=== PATIENT | male | born 1960 | race Caucasian/White ===

== ENCOUNTER 2016-04-02 05:55 | Outpatient (CLI) | payer OTHER ==
[~2016-04-02] VITALS: Ht 167.6 cm; Wt 81.8 kg
--- NOTE | ~2016-04-02 | HEMODYNAMI ---
PATIENT:MYKE POE MEDICAL RECORD: [id number] : 60 LOCATION:D.CAT ADMISSION DATE: 04/02/16 Generatedon:04/02/20168:45 Patient name: MYKE POE Patient #: [id number] SSN: : 1960 Date of study: 04/02/2016 Page: Of Hemodynamic Procedure Report Patient Data Patient Demographics Procedure consent was obtained First Name: MYKE Gender: Male Last Name: DEEPIKA : 1960 Middle Initial: MIKE Age: 55 year(s) Patient #: [id number] Race: Unknown Additional ID: [id number] Contact details Address: [address] [place] [address] State: [place] City: [place] Zip code: [address] Past Medical History Performed procedures and imaging results Date Procedure Procedure Results Comments 02/19/2016 Stress testing Positive->Intermediate inferior with SPECT MPI risk and apically Allergies Allergen Reaction Date Comments Reported Zocor 04/02/2016 Admission Admission Data Admission Date: 04/02/2016 Admission Time: 5:55 Admit Source: Other Height (in.): 66 BSA: 1.92 (m2) Height (cm.): 167.64 BMI: 29.18 (kg/m2) Weight (lbs.): 180.78 Weight (kg.): 82 Lab Results Lab Result Date: 04/02/2016 Lab Result Time: 0:00 Biochemistry Name Units Result Min Max BUN mg/dl 13 --(--*-)-- 7 18 Creatinine mg/dl 1 --(--*-)-- 0.6 1.3 CBC Name Units Result Min Max Hemoglobin g/dl 14.3 --(*---)-- 13.5 17.5 Procedure Procedure Types Cath Procedure Diagnostic Procedure [facility] w/Coronaries Procedure Description Procedure Date Procedure Date: 04/02/2016 Procedure Start Time: 8:22 Procedure End Time: 8:45 Procedure Staff Name Function Chris Burton MD Performing Physician Carlyle Pruitt RN Nurse Duncan Huerta RT Monitor Fransisco Rosenbaum RT Scrub Phong Dawn RN Clearing Tub Worker Procedure Data Cath Procedure Fluoroscopy Diagnostic fluoroscopy Total fluoroscopy Time: 5 time: 5 min min Diagnostic fluoroscopy Total fluoroscopy dose: 555 dose: 555 mGy mGy Contrast Material Contrast Material Type Amount (ml) Isovue 300 71 Entry Location Entry Primary Successful Side Size Upsize Upsize Entry Closure Sy ccessful Closure Location (Fr) 1 (Fr) 2 (Fr) Remarks Device Remarks Radial Right 6 Fr Mechanical artery Short Compression Estimated blood loss: 10 ml Diagnostic catheters Device Type Used For End Catheter Placement Terumo 5Fr Beka 110cm Coronary catheter Angiography Terumo 5Fr [place] 110cm Coronary catheter Angiography Cordis Infinity 5Fr AR Coronary MOD Catheter Angiography Procedure Complications No complications Procedure Medications Medication Administration Route Dosage Oxygen NC 2 l/min Benadryl I.V. 50 mg Lidocaine 2% added to field 20 Heparin Flush Bag added to field 2 bags (1000units/500ml NS) 0.9% NaCl I.V. 100 ml/hr Versed I.V. 1 mg Fentanyl I.V. 50 mcg Versed I.V. 1 mg Fentanyl I.V. 50 mcg Versed I.V. 1 mg Fentanyl I.V. 50 mcg Radial Cocktail I.A. 1 syringe (Verapomil 2mg/Nitro 400mcg/Heparin 1500units) Versed I.V. 1 mg Fentanyl I.V. 50 mcg Versed I.V. 1 mg Hemodynamics Rest BSA: 1.92 (m2) HGB: 14.3 (g/dl) O2 Consumption: Estimated: 235.65 (ml/min) O2 Co nsumption indexed: Estimated:122.73 (ml/min/m) Heart Rate: 81 (bpm) Pressure Samples Time Site Value (mmHg) Purpose Heart Use Rate(bpm) 8:25 LV 142/-5,15 Snapshot 73 8:25 AO 107/69(89) Pullback 74 8:25 LV 139/3,15 Pullback 74 8:25 AO 109/57(86) Snapshot 76 8:33 AO 115/75(89) Snapshot 78 Gradients Valve Time Site 1 Site 2 Mean SEP/DFP Peak To Heart Use (mmHg) (sec/min) Peak Rate (mmHg) (bpm) Aortic 8:25 LV AO 21 8 32 74 139/3,15 107/69(89) Calculations Valve P-P Mean Valve Index Valve Source Name Gradient Area Flow (cm2) Aortic 32 21 32 21 Snapshots Pre Cath Intra NCS Post Cath Vital Signs Time Heart Resp SPO2 etCO2 [id number] NIBP (mmHg) Rhythm Pain Sedation Rate (ipm) (%) (mmHg) (mmHg) Status Level (bpm) 8:08:55 76 19 100 0 0 143/78(109) NSR 0 (11) 10(A) , No pain 8:13:09 63 17 95 0 0 149/82(116) NSR 0 (11) 10(A) , No pain 8:16:56 83 16 95 0 0 110/93(107) NSR 0 (11) 10(A) , No pain 8:21:02 65 19 95 0 0 126/73(97) NSR 0 (11) 10(A) , No pain 8:25:14 72 16 95 0 0 118/61(86) NSR 0 (11) 9(A) , No pain 8:29:26 82 17 94 0 0 123/62(85) NSR 0 (11) 9(A) , No pain 8:33:40 79 19 96 0 0 116/57(82) NSR 0 (11) 9(A) , No pain 8:37:50 76 16 95 0 0 115/61(78) NSR 0 (11) 9(A) , No pain 8:42:00 75 16 98 0 0 125/64(93) NSR 0 (11) 10(A) , No pain Medications Time Medication Route Dose Verified Delivered Reason Notes E ffectiveness by by 8:09:24 Oxygen NC 2 l/min Chris Buffie used for Micheal Pruitt RN procedure 8:09:33 Benadryl I.V. 50 mg Chris Buffie used for Micheal Pruitt RN procedure 8:10:29 Lidocaine 2% added 20ml Chris Chris for local to vial Micheal Burton MD anesthetic field 8:10:37 Heparin Flush added 2 bags Chris Chris used for Bag to Micheal Burton MD procedure (1000units/500ml field NS) 8:10:46 0.9% NaCl I.V. 100 Chris Buffie Per ml/hr Micheal Pruitt RN physician 8:14:14 Versed I.V. 1 mg Chris Buffie for sedation Micheal Pruitt RN 8:14:20 Fentanyl I.V. 50 mcg Chris Buffie for sedation Micheal Pruitt RN 8:18:30 Versed I.V. 1 mg Chris Buffie for sedation Micheal Pruitt RN 8:18:33 Fentanyl I.V. 50 mcg Chris Buffie for sedation Micheal Pruitt RN 8:23:31 Versed I.V. 1 mg Chris Buffie for sedation Micheal Pruitt RN 8:23:34 Fentanyl I.V. 50 mcg Chris Buffie for sedation Micheal Pruitt RN 8:23:43 Radial Cocktail I.A. 1 Chris Chris for (Verapomil syringe Micheal Burton MD vasodilation 2mg/Nitro 400mcg/Heparin 1500units) 8:28:38 Versed I.V. 1 mg Chris Chris for sedation Micheal Burton MD 8:28:42 Fentanyl I.V. 50 mcg Chris Chris for sedation Micheal Burton MD 8:33:47 Versed I.V. 1 mg Chris Chris for sedation Micheal Burton MD Procedure Log Time Note 7:30:03 Phong Dawn RN sent for patient. Start room use. 7:37:55 Admit Source: Other 7:43:43 Diagnostic Cath status Elective 7:44:03 Time tracking: Regular hours 7:44:09 Plan of Care:Hemodynamics will remain stable., Cardiac rhythm will remain stable., Comfort level will be maintained., Respiratory function will remain adequate., Patient/ family verbilizes understanding of procedure., Procedure tolerated without complication., Recovers from procedure without complications.. 7:51:43 Patient Weight : 180.78 lbs 7:52:12 Patient Height : 66 inches 7:53:15 Patient allergic to Zocor 7:54:29 Lab Result : BUN 13 mg/dl 7:54:29 Lab Result : Creatinine 1 mg/dl 7:54:29 Lab Result : Hemoglobin 14.3 g/dl 7:55:20 ACC Patient presents with Stable Angina CCS Anginal Class 2--Slight limitation of ordinary activity. 7:55:22 ACCPatient has been prescribed/administered the following anti-anginal medication within the last 2 weeks: None 7:55:29 Is patient on blood thinner?No 7:55:33 ACC The patient was administered the following blood thiners within the last 24 hours: ACCAspirin 7:55:42 Lab results completed and on chart. 7:57:34 Patient received from Outpatients to CCL 2 Alert and oriented. Tansferred to table in Supine position. 7:57:35 Warm blankets applied, and tati hugger turned on for patient comfort. 7:57:36 Correct patient and procedure confirmed by team. 7:57:37 Signed procedure consent form obtained from patient. 7:57:38 ECG and BP/O2 sat monitors applied to patient. 8:07:51 Vital chart was started 8:08:23 Baseline sample Acquired. 8:08:27 Rhythm: sinus rhythm 8:08:29 Full Disclosure recording started 8:08:43 H&P Date Dictated: 03/20/2016 Within 30 days and on chart., H&P Addendum completed by physician on day of procedure. (MUST COMPLETE FOR ALL OUTPATIENTS). 8:08:44 Pre-procedure instructions explained to patient. 8:08:45 Pre-op teaching completed and patient verbalized understanding. 8:08:46 Family in waiting room. 8:08:48 Patient NPO since Midnight. 8:08:49 Is the patient allergic to Iodine/contrast media? No. 8:08:52 Patient diabetic? No. 8:08:55 Previous problem with sedation/anesthesia? No ? 8:08:56 Snore? Yes 8:08:57 Sleep apnea? No 8:08:58 Deviated septum? No 8:08:59 Opens mouth fully? Yes 8:09:00 Sticks out tongue? Yes 8:09:02 Airway obstruction? No ? 8:09:08 Dentures? Yes UPPER IN 8:09:15 Pre procedure: right dorsailis pedis pulse 1+ Palpable, but thready & weak; easily obliterated 8:09:17 Modified Dylan's test Ulnar < 7 seconds 8:09:19 Patient pain scale 0/10 ?. 8:09:24 Oxygen 2 l/min NC was given by Carlyle Pruitt RN; used for procedure; 8:09:33 Benadryl 50 mg I.V. was given by Carlyle Pruitt RN; used for procedure; 8:09:52 IV patent on arrival in left hand with 0.9% NaCl at [facility]. 8:09:57 Right Radial & Right Groin area was prepped with chlora-prep and draped in sterile fashion 8::58 Alarms reviewed by R. N. 8::58 Sharps counted by scrub and verified by R.N. 8:10:02 --------ALL STOP TIME OUT------ 8:10:03 Final Timeout: patient, procedure, and site verified with staff and physician. All members of the team are in agreement. 8:10:05 Right Radial & Right Groin site verified by team. 8:10:08 Physical assessment completed. ASA score P 2 - A patient with mild systemic disease as per Chris Burton MD. 8:10:11 Sedation plan: IV Moderate Sedation Versed, Fentanyl 8:10:29 Lidocaine 2% 20ml vial added to field was given by Chris Burton MD; for local anesthetic; 8:10:37 Heparin Flush Bag (1000units/500ml NS) 2 bags added to field was given by Chris Burton MD; used for procedure; 8:10:46 0.9% NaCl 100 ml/hr I.V. was given by Carlyle Pruitt RN; Per physician; 8:12:22 Use device set Radial Dx 8:12:24 Tegaderm 4 x 4 opened to sterile field. 8:12:25 Acist Hand Control opened to sterile field. 8:12:25 Acist Manifold opened to sterile field. 8:12:27 Acist Syringe opened to sterile field. 8:12:27 Cardinal Cath Pack opened to sterile field. 8:12:27 Bag Decanter opened to sterile field. 8:12:28 Cook 21G 4cm Radial Needle opened to sterile field. 8:12:28 Terumo 6Fr Slender Glidesheath opened to sterile field. 8:12:28 St Tejinder 260cm J .035 wire opened to sterile field. 8:14:14 Versed 1 mg I.V. was given by Carlyle Pruitt RN; for sedation; 8:14:20 Fentanyl 50 mcg I.V. was given by Carlyle Pruitt RN; for sedation; 8:16:04 Zero performed for pressure channel P1 8:16:07 Zero performed for pressure channel P1 8:18:30 Versed 1 mg I.V. was given by Carlyle Pruitt RN; for sedation; 8:18:33 Fentanyl 50 mcg I.V. was given by Carlyle Pruitt RN; for sedation; 8:21:54 Procedure started. 8:22:14 Local anesthetic to right radial artery with Lidocaine 2% by Chris Burton MD.INITIAL ACCESS ONLY 8:23:03 A 6 Fr Short sheath was inserted into the Right Radial artery 8:23:31 Versed 1 mg I.V. was given by Carlyle Pruitt RN; for sedation; 8:23:34 Fentanyl 50 mcg I.V. was given by Carlyle Pruitt RN; for sedation; 8:23:43 Radial Cocktail (Verapomil 2mg/Nitro 400mcg/Heparin 1500units) 1 syringe I.A. was given by Chris Burton MD; for vasodilation; 8:23:49 A Terumo 5Fr Beka 110cm catheter was advanced over the wire and used for Coronary Angiography. 8:25:23 LV angiography performed. 8:25:24 LV gram done using ALAN 8:25:29 EF : 55 % 8:25:32 LV hemodynamics recorded. 8:25:36 Injector settings: Ml/sec: 5, Volume: 10, 8:26:58 Catheter removed. unable to cannulate vessel. 8:27:13 A Terumo 5Fr [place] 110cm catheter was advanced over the wire and used for Coronary Angiography. 8:28:38 Versed 1 mg I.V. was given by Chris Burton MD; for sedation; 8:28:42 Fentanyl 50 mcg I.V. was given by Chris Burton MD; for sedation; 8:29:17 LCA angiography performed. 8:33:14 Catheter exchanged over wire. 8:33:26 A FastSoftity 5Fr AR MOD Catheter was advanced over the wire and used for Coronary Angiography. 8:33:42 RCA angiography performed. 8:33:47 Versed 1 mg I.V. was given by Chris Burton MD; for sedation; 8:36:27 Catheter exchanged over wire. 8:36:42 Terumo TR Band Standard opened to sterile field. 8:38:36 Sheath removed intact; hemostasis achieved with Mechanical Compression to the Right Radial artery. 8:38:39 Procedure ended.(Physican Out) 8:38:50 Fluoroscopy time 05.00 minutes. 8:39:12 Fluoroscopy dose: 555 mGy 8:39:12 Flurop Dose total: 555 8:39:17 Contrast amount:Isovue 300 71ml. 8:39:23 Sharps counted by scrub and verified by R.N. 8:39:27 TR band inflated with 12cc of air. 8:39:34 Insertion/operative site no bleeding no hematoma. 8:39:35 Post Procedure Pulses reassessed and unchanged 8:39:39 Post-procedure physical assessment completed. ASA score P 2 - A patient with mild systemic disease as per Chris Burton MD. 8:39:40 Post procedure rhythm: unchanged. 8:39:43 Estimated blood loss: 10 ml 8:39:49 Post procedure instruction explained to patient.Patient verbalizes understanding. 8:39:50 Patient needs reinforcement of post procedure teaching. 8:39:51 Procedure and supply charges have been captured, reviewed, submitted and are correct. 8:39:57 Procedure Complication : No complications 8:45:07 Vital chart was stopped 8:45:08 See physician's report for complete and final results. 8:45:11 Report given to Post Procedure Room. 8:45:15 Patient transfered to Post Procedure Room with Stretcher. 8:45:18 Procedure ended. 8:45:18 Full Disclosure recording stopped 8:45:26 End room use (Document Last) Device Usage Item Name Manufacture Quantity Catalog Hospital Part Current Minimal Lot# / Number Charge Number Stock Stock Serial# Code Tegaderm 4 3M 1 [id number] [id number] [id number] 5 x 4 Acist Hand Acist 1 07607 164218 656805 177361 5 Control [employer] Acist Acist 1 12764 333394 272142 053460 5 Manifold [employer] Acist Acist 1 24038 306082 223425 495275 20 Syringe [employer] Cardinal Cardinal 1 [id number] 60996 850923 5 Cath Pack Health Bag Microtek 1 2001S [id number] 67046 267091 5 Decanter [employer] Inc. Terumo 6Fr Terumo 1 [id number] 118560 627059 564623 [address] Tejinder 1 268425 876463 891021 676803 30 260cm J .035 wire Terumo 5Fr Terumo 1 40-5023 263573 436107 624939 5 Beka 110cm catheter Terumo 5Fr Terumo 1 40-9043 648926 742710 772250 5 [place] 110cm catheter Cordis Cardinal 1 [id number] 691934 377260 233250 15 Infinity Health 5Fr AR MOD Catheter Terumo TR Terumo 1 [id number] 942729 645382 396265 40 Band Standard Cook 21G [facility] 1 [id number] 201392 5 4cm Radial Needle Signature Audit [place] Stage Time Signature Unsigned Intra-Procedure 04/02/2016 Duncan Huerta 8:45:40 AM RT(R) Signatures Monitor : Duncan Huerta RT Signature : Date : Time : [address] [place] [address]
[2016-04-02] MEDS ORDERED: ASPIRIN325 MG PO (06:33)
[2016-04-02 06:38] VITALS: BP 144/82; Ht 167.6 cm; Wt 81.8 kg
[2016-04-02 07:35] LABS: BASOPHILS 0.4 % (0.0-2.0); EOSINOPHILS 3.7 % (0-7); HEMOGLOBIN 14.3 g/dL (13.5-17.5); IMMATURE GRANULOCYTES 0.2 % (0-5); LYMPHOCYTES 18.7 % (15-50); MCH 31.1 pg (26.0-34.0); MCV 91.3 fL (80.0-100.0); MEAN PLATELET VOLUME 9.9 fL (7.4-10.4); MONOCYTES 9.1 % (2-11); NEUTROPHILS 67.9 % (40-80); PLATELET COUNT 309 10x3/uL (130-400); RDW 12.5 % (11.5-14.5); WBC 5.1 10x3/uL (4.8-10.8)
[2016-04-02 07:43] LABS: CALC OSMOLALITY 277 mosm/kg (275-300); CALCIUM 8.7 mg/dL (8.5-10.1); CARBON DIOXIDE 25.4 mmol/L (21.0-32.0); CHLORIDE - SERUM 107 mmol/L (98-107); GLUCOSE 107 mg/dL (74-106); POTASSIUM - SERUM 3.9 mmol/L (3.5-5.1); SODIUM 139 mmol/L (136-145); UREA NITROGEN 13 mg/dL (7-18); eGFR NON AFRICAN AMERICAN 82 mL/min (90-120)
--- NOTE | 2016-04-02 09:14 | NUR ---
0910 PATIENT CONTINUES TO SLEEP, NC 2L W NO RESP DISTRESS. NSR RATE 79W NO C/O CHEST PAIN. PULSES PALP X 4. R WRIST TR BAND C/D/I WITH NO HEMATOMA OR BLEEDING. FAMILY AT BEDSIDE.
--- NOTE | 2016-04-02 10:56 | NUR ---
0940 TALKING WITH FAMILY AT BEDSIDE. NSR RATE 64 W NO C/O CHEST PAIN. PULSES PALP X 4. R WRIST TR BAND C/D/I WITH NO HEMATOMA OR BLEEDING. 1030 SITTING UP EATING TURKEY SANDWICH, VITALS ALL WNL. R WRIST REMAINS C/D/I WITH NO HEMATOMA OR BLEEDING. 1055 REMOVED 4CC AIR FROM R WRIST TR BAND, IMMEDIATELY STARTED TO BLLED, REPLACED AIR TO TR BAND AND WILL MONITOR CLOSELY FOR BLEEDING.
--- NOTE | 2016-04-02 11:10 | NUR ---
4CC AIR REMOVED FROM R WRIST TR BAND WITH NO BLEEDING. WILL MONITOR CLOSELY.
--- NOTE | 2016-04-02 11:14 | NUR ---
PIV REMOVED FROM LEFT HAND WITH BANDAID APPLIED.
--- NOTE | 2016-04-02 11:22 | NUR ---
TR BAND REMOVED WITH DRESSING APPLIED NO BLEEDING NO HEMATOMA NOTED. DISCHARGE INSTRUCTIONS GONE OVER WITH PATIENT AND FAMILY. LEFT VIA WC TO [facility] FOR TRANSPORT HOME. CHEST PAIN IS DENIED
--- NOTE | 2016-04-15 13:15 | OP ---
PATIENT NAME: MKYE POE MEDICAL RECORD: [id number] :60 LOCATION:D.CAT ADMISSION DATE: SURGEON: LEONELA MADDEN M.D. DATE OF OPERATION: 04/02/2016 REFERRING PHYSICIAN: Dr. Raheem Dacosta. PROCEDURES PERFORMED: 1. Selective coronary angiography. 2. Left heart catheterization with ventriculogram. INDICATION: A 55-year-old gentleman with history of coronary artery disease presents recently with abnormal Cardiolite stress test revealing inferior and apical ischemia. EQUIPMENT USED: A 5-Cymraes [place] catheter and AR modified catheter. TECHNIQUE: A 6-Cymraes sheath was inserted in retrograde fashion in the right radial artery. Next, selective coronary angiography was performed in standard 5-Cymraes [place] catheter and AR modified catheters. Left heart catheterization performed using pigtail catheter. CORONARY ANATOMY: 1. Left main: Left main trunk is moderate in caliber. It gives rise to the LAD and circumflex. It is angiographically normal. 2. LAD: This is a moderate caliber vessel extending to the apex. The proximal vessel has been stented beyond the ostium. The stent is widely patent. However, proximal to the stent involving the origin of the LAD is an 80-90% stenosis. 3. Circumflex: This vessel is moderate in caliber. The proximal vessel demonstrates a 40% stenosis just beyond the origin. There appears to be no 40% to 50% stenosis in the proximal vessel as well. 4. Right coronary: This vessel is moderate in caliber and dominant. At the level of first marginal branch, there appears to be an eccentric 60% stenosis. 5. Left ventricle: Left ventricle is normal in size and function. No wall motion abnormalities are seen. Estimated ejection fraction is 55%. IMPRESSION: 1. High grade disease involving the origin of the left anterior descending. 2. Normal left ventricular function. RECOMMENDATIONS: I will review the situation with the patient. I have some concerns about staying in the origin as vessel as the circumflex and left main could possibly be compromised because of the acute angulation of the LAD. I will review the situation with the patient. TRANSINT:[id number] Voice Confirmation ID: [id number] DOCUMENT ID: [id number] OPERATIVE REPORT [id number] MYKE POE LEONELA MADDEN M.D. at 1315 CC: [id number] DICTATION DATE: 04/02/16 0842 INSTRUMENT TECHNICIAN APPRENTICE: 04/02/16 0858 DEP CLI 04/02/16 [facility] [address] [place] [address]
== END 2016-04-02 11:24 | disposition home or self-care (01) ==
LOC: D.CATH 05:55
PROVIDERS: Internal Medicine Cardiovascular Disease
DX: I25.10 Atherosclerotic heart disease of native coronary artery without angina pectoris (principal); R94.39 Abnormal result of other cardiovascular function study